=== PATIENT | male | born 1935 | race Caucasian/White ===

== ENCOUNTER 2018-04-14 14:58 | Inpatient (IN) ==
[2018-04-14] MEDS ORDERED: FUROSEMIDE 10 MG/ML VIAL IV ONE ×2 (15:30→22:35)
[2018-04-14 16:01] LABS: Hematocrit 33.9 % (42.0-52.0); Hemoglobin 10.8 gm/dL (13.5-18.0); Mean Cell Volume 89.7 fl (78-100); Mean Corpuscular Hemoglobin 28.6 pg (27-31); Mean Corpuscular Hgb Conc 31.9 g/dl (32-36); Mean Platelet Volume 8.8 fl (8-11.3); Neutrophil # 6.5 K/mm3 (1.3-6.0); Neutrophil % 74.8 % (42-75.0); Platelet Count 179 K/mm3 (150-450); Red Blood Count 3.78 M/mm3 (4.7-6.0); Red Cell Distribution Width 14.8 % (11.5-14.0); White Blood Count 8.6 K/mm3 (4.0-10.5)
[2018-04-14 16:21] LABS: ALT 139 U/L (19-67); AST 96 U/L (0-48); Albumin * 3.2 gm/dl (3.4-5.0); Alkaline Phosphatase * 83 U/L (50-170); Anion Gap 11.3 mmol/L (6.8-13.8); BNP * 2228 pg/mL (5-650); BUN/Creatinine Ratio 24.2 (9.0-21.6); Bilirubin, Total 1.2 mg/dL (0.0-1.1); Blood Urea Nitrogen 30 mg/dL (6-23); Calcium * 8.7 mg/dL (7.9-10.9); Carbon Dioxide 27.4 mmol/L (24-32.6); Chloride 107 mmol/L (97-106); Glucose * 102 mg/dL (70-110); Potassium 4.7 mmol/L (3.4-4.6); Sodium 141 mmol/L (132-142); Total Protein 6.8 gm/dL (6.2-8.2)
[2018-04-14 16:23] LABS: Troponin I Less than 0.017 ng/mL (0.00-0.10)
[2018-04-14 16:30] LABS: Urine Bilirubin Negative (NEGATIVE); Urine Blood 250 /ul (NEGATIVE); Urine Ketone Negative (NEGATIVE); Urine Nitrite Negative (NEGATIVE); Urine Protein 15 mg/dL (NEGATIVE); Urine Urobilinogen Normal (NORMAL)
[2018-04-14 16:36] LABS: Urine Appearance Slightly Cloudy (CLEAR); Urine Bacteria TRACE; Urine Color Yellow; Urine WBC TRACE /hpf (0-5)
--- NOTE | 2018-04-14 17:02 | ERNOTE ---
Dyspnea - Date Date of Service: 04/14/18 - General Presenting Symptoms: shortness of breath, difficulty of breathing Time Seen by Provider: 04/14/18 15:16 Source: patient Exam Limitations: no limitations - Immun/Allergies/Home Medications Immunizations: IMMUNIZATION HX Immunizations Up to Date No History of Influenza Vaccine No Hx Pneumococcal Vaccination No Allergies/Adverse Reactions: Allergies gluten Allergy (Mild, Verified 04/14/18 15:08) Hives Home Medications: HOME MEDICATIONS RX: Aspirin 325 mg PO HS 04/14/18 [Last Taken Unknown] RX: Metoprolol Succinate [Toprol Xl] 50 mg PO DAILY 04/14/18 [Last Taken Unknown] Furosemide [Lasix] 80 mg PO DAILY #60 tab 04/16/18 [Last Taken Unknown] RX: Lisinopril [Zestril] 20 mg PO DAILY #30 tab 04/16/18 [Last Taken Unknown] RX: Nystatin [Mycostatin Powder] 1 appl TOPICAL BID #1 btl 04/16/18 [Last Taken Unknown] RX: Spironolactone 25 mg PO DAILY #30 tab 04/16/18 [Last Taken Unknown] - History of Present Illness Narrative: patient presents to ed with c/o dyspnea and perpheral edema, onset over last week, has gained several pounds Severity: moderate Treatment FAMILY COACH: none Initiating event: Reports: none Frequency of episodes: Reports: occassional episodes Modifying Factors - (Improves): Reports: nothing Modifying Factors (Worsens): Reports: activity Associated Symptoms-Dyspnea: Reports: weakness Review of Systems - Narrative Narrative: patient present with increased sob snd increase in edema - Review of Systems Constitutional: Present: See HPI, weakness, fatigue, malaise EYE: Present: no symptoms reported ENT: Present: no symptoms reported Respiratory: Present: See HPI, shortness of breath Cardiology: Present: See HPI, edema Gastrointestinal/Abdominal: Present: no symptoms reported Genitourinary: Present: no symptoms reported Musculoskeletal: Present: no symptoms reported Skin: Present: no symptoms reported Neurological: Present: no symptoms reported Endocrine: Present: no symptoms reported Hematologic/Lymphatic: Present: no symptoms reported Psych: Present: no symptoms reported All Other Systems: All systems neg except as marked Medical History (Last Reviewed 04/14/18 @ 19:38 by Eunice Wolf RN) CVA (cerebral vascular accident) HTN (hypertension) Surgical History: Surgical History (Last Reviewed 04/14/18 @ 19:38 by Eunice Wolf RN) History of facial surgery History of open heart surgery Hx of heart bypass surgery Family History: Family History (Last Updated 04/15/18 @ 11:21 by Heidi Liu RN) Brother Father CHF (congestive heart failure) Mother Myocardial infarction Sister Heart valve replaced Sister No pertinent past medical history Brother No pertinent past medical history Social History: Preferred Language Azeri Do you have any amish or Yes: caodaism cultural preference? Smoking Status Former smoker Alcohol Use sober Drug Use none No Social History Section defined Physical Exam - Physical Exam Narrative: patient appears in mild distress General Appearance: Present: mild distress, anxious Head Exam: Present: normal inspection, no evidence of injury Eye Exam: Normal inspection: bilateral, PERRL: bilateral, EOMI: bilateral Ears, Nose, Throat: Present: normal ENT inspection, normal pharynx Neck: Present: normal inspection, nontender Respiratory: Present: rales, rhonchi, wheezing Cardiovascular/Chest: Present: regular rate, rhythm, JVD Gastrointestinal/Abdominal: Present: normal bowel sounds, nontender, nondistended, soft, no organomegaly Male Genitals Exam: Present: other - scrotal edema Back Exam: Present: normal inspection, normal range of motion, no CVA tenderness, no vertebral tenderness Extremity Exam: Present: other - perpheral edema to srotum Neurological Exam: Present: alert, oriented, normal mood/affect, no motor/sensory deficits Skin Exam: Present: normal color, warm/dry Lymphatic Exam: Present: no adenopathy Progress - Date and Time Seen: Date and Time: 04/16/18 19:53 patient improved, to be admitted - Results and Orders Patient's Lab Results:: I have reviewed the patient's lab results. - Vital Signs Patient's Vital Signs:: I have reviewed the patient's vital signs. Vital Signs: Vital Signs 04/14/18 14:59 04/14/18 15:36 04/14/18 15:55 Temperature 36.4 C 36.6 C Pulse Rate 83 95 82 Respiratory Rate 14 20 Blood Pressure 119/66 134/79 132/89 O2 Sat by Pulse Oximetry 97 97 04/14/18 16:08 04/14/18 16:38 Temperature 36.6 C 36.6 C Pulse Rate 82 87 Respiratory Rate 20 20 Blood Pressure 138/100 H 148/80 O2 Sat by Pulse Oximetry 95 95 - EKG EKG #1 EKG: NSR - X-Ray X-Ray #1 X-Ray: chest Interpretation: Interp. by me - pulmonary edema - Progress/Reassessment Chief Complaint: Dyspnea Progress:: Improved Plan - Plan Plan: to be admitted Departure Clinical Impression: Congestive heart failure (CHF) Qualifiers: Heart failure type: unspecified Heart failure chronicity: acute on chronic Qualified Code(s): I50.9 - Heart failure, unspecified - Departure Disposition: Still a patient Condition: Stable
[2018-04-14] MEDS ORDERED: POTASSIUM CHLORIDE 10 MEQ TABLET.SA PO ONE (21:00)
[2018-04-14] MEDS: ASPIRIN 325 MG TABLET.DR PO SCH (21:25)
[2018-04-14] MEDS: FUROSEMIDE 10 MG/ML VIAL IV SCH (21:27)
[2018-04-14] MEDS: NYSTATIN 15 APPL BTL TP SCH (22:49)
--- NOTE | 2018-04-15 05:45 | HP ---
Chief Complaint - Chief Complaint Date of Service: 04/15/18 Time of Service: 05:44 Chief Complaint: shortness of breath/leg swelling History of Present Illness: Crow Traylor, is a 82-year-old white male, with past medical history of hypertension, coronary artery disease status post CABG, who was admitted on 04/14/2018 because of increasing shortness of breath and increasing leg edema. The patient usually doctors at the [facility] and lately with the [facility]. For the last one week prior to admission, the patient has been having increasing shortness of breath associated with orthopnea. The patient was preferring to sleep in his rocking chair down on his bed. Yesterday he noticed that the swelling of his leg also has increased and it went up to "his personal organs" and so he went to our emergency room room. In the emergency room the patient was found to be slightly anemic, with an elevated BNP, GFR 59, LFT WNL. His EKG showed NSR and troponin was negative. His chest x-ray showed cardiomegaly with no infiltrates or edema. He did have swelling of his lower extremity involving as well as his scrotal and penile area. He was started on IV diuretics and admitted for congestive heart failure. Medical History (Last Reviewed 04/14/18 @ 19:38 by Eunice Wolf RN) CVA (cerebral vascular accident) HTN (hypertension) Surgical History: Surgical History (Last Reviewed 04/14/18 @ 19:38 by Eunice Wolf RN) History of facial surgery History of open heart surgery Hx of heart bypass surgery Family History: Family History (Last Reviewed 04/14/18 @ 19:38 by Eunice Wolf RN) Brother Father Mother Sister Heart valve replaced Sister No pertinent past medical history Brother No pertinent past medical history Social History: Patient Lives/Resources Home Utilized Preferred Language Comoran Do you have any church or Yes: synagogue cultural preference? Smoking Status Former smoker Have you smoked in the past 12 No months Do you dip or chew tobacco No Alcohol Use sober Drug Use none No Social History Section defined Review Of Systems (GEN) - Review of Systems Generalized/Overall Review: Absent: Weakness, Chills, Fever EENTM: Absent: Blurred Vision Respiratory: Present: Shortness of Breath, Orthopnea. Absent: Cough, Wheezing Cardiac: Present: Edema. Absent: Chest Pain, Palpitations Abdominal: Absent: Nausea, Vomiting Genitourinary: Absent: Urgency Musculoskeletal: Absent: Joint Pain Neurological: Absent: Headache, Weakness Misc: All systems neg except as marked Immunizations: IMMUNIZATION HX Immunizations Up to Date No History of Influenza Vaccine No Hx Pneumococcal Vaccination No Allergies/Adverse Reactions: Allergies Allergy/AdvReac Type Severity Reaction Status Date / Time gluten Allergy Mild Hives Verified 04/14/18 15:08 Home Medications: HOME MEDICATIONS Amlodipine Besylate 5 mg PO DAILY 04/14/18 [Last Taken Unknown] Aspirin 325 mg PO HS 04/14/18 [Last Taken Unknown] Metoprolol Succinate [Toprol Xl] 50 mg PO DAILY 04/14/18 [Last Taken Unknown] Exam - Exam Vital Signs: Vital Signs - Last Taken Temp 37.1 C 04/15/18 03:00 Pulse 83 04/15/18 03:00 Resp 18 04/15/18 03:00 BP 125/64 04/15/18 03:00 Pulse Ox 95 04/15/18 03:00 Constitutional: Present: Alert, Oriented x3, Cooperative, Elderly ENT Exam: Present: hearing grossly normal Eye Exam: bilateral eye: normal inspection, PERRL, EOMI Neck: Present: supple Respiratory: Present: decreased breath sounds, crackles, No wheezing Cardiovascular/Chest: Present: regular rate, rhythm, no murmur, JVD Abdomen: Present: Normal bowel sounds, soft, nontender, distended /Rectal: Present: Other - scrotal swelling Extremity: Present: no calf tenderness, lower extremity edema Diagnostic Studies: Abnormal Lab Results 04/14/18 04/14/18 04/14/18 Range/Units 15:25 15:55 15:55 RBC 3.78 L (4.7-6.0) M/mm3 Hgb 10.8 L (13.5-18.0) gm/dL Hct 33.9 L (42.0-52.0) % MCHC 31.9 L (32-36) g/dl RDW 14.8 H (11.5-14.0) % Immature Gran % (Auto) 0.70 H (0.001-0.429) % Immature Gran # (Auto) 0.06 H (0.000-0.0310) K/mm3 Lymphocytes % 9.5 L (20-51) % Monocytes % 12.1 H (0.0-9) % Neutrophils # 6.5 H (1.3-6.0) K/mm3 Lymphocytes # 0.82 L (1.5-3.5) k/mm3 pCO2 34.7 L (35.0-48.0) mmHg pO2 73.2 L (83.0-108.0) mmHg Base Excess -2.3 L (-2.0-3.0) mmol/L Potassium 4.7 H (3.4-4.6) mmol/L Chloride 107 H (97-106) mmol/L BUN 30 H (6-23) mg/dL Est GFR (Non-Af Amer) 59 L (60-130) mL/min BUN/Creatinine Ratio 24.2 H (9.0-21.6) Total Bilirubin 1.2 H (0.0-1.1) mg/dL AST 96 H (0-48) U/L ALT 139 H (19-67) U/L B-Natriuretic Peptide 2228 H (5-650) pg/mL Albumin 3.2 L (3.4-5.0) gm/dl Urine Protein (NEGATIVE) mg/dL Urine Blood (NEGATIVE) /ul Prot Sulfosalicylic Acd (0) mg/dL Urine RBC (0-5) /hpf 04/14/18 Range/Units 16:26 RBC (4.7-6.0) M/mm3 Hgb (13.5-18.0) gm/dL Hct (42.0-52.0) % MCHC (32-36) g/dl RDW (11.5-14.0) % Immature Gran % (Auto) (0.001-0.429) % Immature Gran # (Auto) (0.000-0.0310) K/mm3 Lymphocytes % (20-51) % Monocytes % (0.0-9) % Neutrophils # (1.3-6.0) K/mm3 Lymphocytes # (1.5-3.5) k/mm3 pCO2 (35.0-48.0) mmHg pO2 (83.0-108.0) mmHg Base Excess (-2.0-3.0) mmol/L Potassium (3.4-4.6) mmol/L Chloride (97-106) mmol/L BUN (6-23) mg/dL Est GFR (Non-Af Amer) (60-130) mL/min BUN/Creatinine Ratio (9.0-21.6) Total Bilirubin (0.0-1.1) mg/dL AST (0-48) U/L ALT (19-67) U/L B-Natriuretic Peptide (5-650) pg/mL Albumin (3.4-5.0) gm/dl Urine Protein 15 H (NEGATIVE) mg/dL Urine Blood 250 H (NEGATIVE) /ul Prot Sulfosalicylic Acd 2+ H (0) mg/dL Urine RBC 10-25 H (0-5) /hpf Laboratory Results WBC 8.6 K/mm3 (4.0-10.5) 04/14/18 15:55 RBC 3.78 M/mm3 (4.7-6.0) L 04/14/18 15:55 Hgb 10.8 gm/dL (13.5-18.0) L 04/14/18 15:55 Hct 33.9 % (42.0-52.0) L 04/14/18 15:55 MCV 89.7 fl (78-100) 04/14/18 15:55 MCH 28.6 pg (27-31) 04/14/18 15:55 MCHC 31.9 g/dl (32-36) L 04/14/18 15:55 RDW 14.8 % (11.5-14.0) H 04/14/18 15:55 Plt Count 179 K/mm3 (150-450) 04/14/18 15:55 MPV 8.8 fl (8-11.3) 04/14/18 15:55 Immature Gran % (Auto) 0.70 % (0.001-0.429) H 04/14/18 15:55 Immature Gran # (Auto) 0.06 K/mm3 (0.000-0.0310) H 04/14/18 15:55 Neutrophils % 74.8 % (42-75.0) 04/14/18 15:55 Lymphocytes % 9.5 % (20-51) L 04/14/18 15:55 Monocytes % 12.1 % (0.0-9) H 04/14/18 15:55 Eosinophils % 2.3 % (0.0-3.0) 04/14/18 15:55 Basophils % 0.6 % (0.0-1.0) 04/14/18 15:55 Nucleated RBC % 0.0 k/mm3 (0-1) 04/14/18 15:55 Neutrophils # 6.5 K/mm3 (1.3-6.0) H 04/14/18 15:55 Lymphocytes # 0.82 k/mm3 (1.5-3.5) L 04/14/18 15:55 Monocytes # 1.0 k/mm3 (0.0-1.0) 04/14/18 15:55 Eosinophils # 0.2 k/mm3 (0.0-0.7) 04/14/18 15:55 Absolute Basophils 0.1 k/mm3 (0.0-0.1) 04/14/18 15:55 pCO2 34.7 mmHg (35.0-48.0) L 04/14/18 15:25 pO2 73.2 mmHg (83.0-108.0) L 04/14/18 15:25 HCO3 21.7 mmol/L (21.0-28.0) 04/14/18 15:25 Total CO2 22.8 mmol/L (19.0-24.0) 04/14/18 15:25 Base Excess -2.3 mmol/L (-2.0-3.0) L 04/14/18 15:25 ABG pH 7.41 (7.35-7.45) 04/14/18 15:25 ABG O2 Sat (Measured) 95.1 % (94.0-98.0) 04/14/18 15:25 Sodium 141 mmol/L (132-142) 04/14/18 15:55 Plasma Sodium 141 mmol/L (130-142) 04/14/18 15:55 Potassium 4.7 mmol/L (3.4-4.6) H 04/14/18 15:55 Chloride 107 mmol/L (97-106) H 04/14/18 15:55 Carbon Dioxide 27.4 mmol/L (24-32.6) 04/14/18 15:55 Anion Gap 11.3 mmol/L (6.8-13.8) 04/14/18 15:55 BUN 30 mg/dL (6-23) H 04/14/18 15:55 Creatinine 1.24 mg/dL (0.4-1.4) 04/14/18 15:55 Est GFR (Non-Af Amer) 59 mL/min (60-130) L 04/14/18 15:55 BUN/Creatinine Ratio 24.2 (9.0-21.6) H 04/14/18 15:55 Random Glucose 102 mg/dL (70-110) 04/14/18 15:55 Calcium 8.7 mg/dL (7.9-10.9) 04/14/18 15:55 Calcium Adj for Albumin 9.0 mg/dL (8.4-10.2) 04/14/18 15:55 Total Bilirubin 1.2 mg/dL (0.0-1.1) H 04/14/18 15:55 AST 96 U/L (0-48) H 04/14/18 15:55 ALT 139 U/L (19-67) H 04/14/18 15:55 Alkaline Phosphatase 83 U/L (50-170) 04/14/18 15:55 Troponin I Less than 0.017 ng/mL (0.00-0.10) 04/14/18 15:55 B-Natriuretic Peptide 2228 pg/mL (5-650) H 04/14/18 15:55 Total Protein 6.8 gm/dL (6.2-8.2) 04/14/18 15:55 Albumin 3.2 gm/dl (3.4-5.0) L 04/14/18 15:55 Urine Color Yellow 04/14/18 16:26 Urine Appearance Slightly cloudy (CLEAR) 04/14/18 16:26 Urine pH 6.0 pH (5.0-7.0) 04/14/18 16:26 Ur Specific [place] 1.020 SP.GR. (1.005-1.030) 04/14/18 16:26 Urine Protein 15 mg/dL (NEGATIVE) H 04/14/18 16:26 Urine Glucose (UA) Negative mg/dL (NEGATIVE) 04/14/18 16:26 Urine Ketones Negative mg/dL (NEGATIVE) 04/14/18 16:26 Urine Blood 250 /ul (NEGATIVE) H 04/14/18 16:26 Urine Nitrate Negative (NEGATIVE) 04/14/18 16:26 Urine Bilirubin Negative mg/dl (NEGATIVE) 04/14/18 16:26 Prot Sulfosalicylic Acd 2+ mg/dL (0) H 04/14/18 16:26 Urine Urobilinogen Normal EU/dl (NORMAL) 04/14/18 16:26 Ur Leukocyte Esterase Negative /ul (NEGATIVE) 04/14/18 16:26 Urine RBC 10-25 /hpf (0-5) H 04/14/18 16:26 Urine WBC Trace /hpf (0-5) 04/14/18 16:26 Ur Epithelial Cells Trace /hpf (0-5) 04/14/18 16:26 Urine Bacteria Trace (NONE) 04/14/18 16:26 Urine Culture Comments No culture indicated 04/14/18 16:26 Assessment/Plan - Assessment/Plan (1) Congestive heart failure (CHF) Assessment: we will continue with IV diuresis. will get an Echocardiogram and will try to ge [facility] medical records from [place]. will hold his amlodipine and and start him on BERNIE I. continue with his B-Bryan. since CXR shows no pulmonary edema- this could be right sided heart failure. He denies COPD.we will see if his Echo shows pulmonary HTN. Fluid balance shows negative 1.5 L with decrease of 2 kg in his weight. Problem: Acute Qualifiers: Heart failure type: unspecified Heart failure chronicity: acute on chronic Qualified Code(s): I50.9 - Heart failure, unspecified (2) Hypertension Assessment: will continue with home medications but hold Amlodipine. Satrt BERNIE I. Problem: Chronic Qualifiers: Hypertension type: essential hypertension Qualified Code(s): I10 - Essential (primary) hypertension
[2018-04-15 06:26] LABS: Hematocrit 32.7 % (42.0-52.0); Hemoglobin 10.5 gm/dL (13.5-18.0); Mean Cell Volume 89.6 fl (78-100); Mean Corpuscular Hemoglobin 28.8 pg (27-31); Mean Corpuscular Hgb Conc 32.1 g/dl (32-36); Mean Platelet Volume 9.1 fl (8-11.3); Neutrophil # 4.9 K/mm3 (1.3-6.0); Neutrophil % 68.9 % (42-75.0); Platelet Count 193 K/mm3 (150-450); Red Blood Count 3.65 M/mm3 (4.7-6.0); Red Cell Distribution Width 14.7 % (11.5-14.0); White Blood Count 7.1 K/mm3 (4.0-10.5)
[2018-04-15 06:29] LABS: Anion Gap 10.5 mmol/L (6.8-13.8); BUN/Creatinine Ratio 20.3 (9.0-21.6); Calcium * 8.6 mg/dL (7.9-10.9); Carbon Dioxide 27.7 mmol/L (24-32.6); Estimated Creat Clear 33.9; Potassium 4.2 mmol/L (3.4-4.6)
[2018-04-15] MEDS: LISINOPRIL 20 MG TABLET PO SCH (08:58)
[2018-04-15] MEDS: FUROSEMIDE 10 MG/ML VIAL IV SCH ×2 (08:58→16:12)
[2018-04-15] MEDS: METOPROLOL SUCCINATE 50 MG TABLET.SA PO SCH (08:58)
[2018-04-15] MEDS: NYSTATIN 15 APPL BTL TP SCH ×2 (08:59→20:59)
[2018-04-15] MEDS ORDERED: ENOXAPARIN SODIUM 40 MG/0.4 ML SYRG SC SCH (11:15)
[2018-04-15] MEDS: ASPIRIN 325 MG TABLET.DR PO SCH (20:59)
[2018-04-15] MEDS ORDERED: ASPIRIN 325 MG PO SCH (21:00)
[2018-04-16 05:39] LABS: Anion Gap 11.1 mmol/L (6.8-13.8); BUN/Creatinine Ratio 22.4 (9.0-21.6); Calcium * 8.2 mg/dL (7.9-10.9); Carbon Dioxide 29.6 mmol/L (24-32.6); Estimated Creat Clear 33.6; Potassium 3.7 mmol/L (3.4-4.6)
[2018-04-16] MEDS: FUROSEMIDE 10 MG/ML VIAL IV SCH (08:19)
[2018-04-16] MEDS: LISINOPRIL 20 MG TABLET PO SCH (08:20)
[2018-04-16] MEDS: METOPROLOL SUCCINATE 50 MG TABLET.SA PO SCH (08:20)
[2018-04-16] MEDS: NYSTATIN 15 APPL BTL TP SCH (08:20)
[2018-04-16] MEDS ORDERED: POTASSIUM CHLORIDE 20 MEQ TABLET.SA PO SCH (09:00)
--- NOTE | 2018-04-16 10:03 | DS ---
(1) Congestive heart failure (CHF) Problem: Acute Qualifiers: Heart failure type: unspecified Heart failure chronicity: acute on chronic Qualified Code(s): I50.9 - Heart failure, unspecified (2) Hypertension Problem: Chronic Qualifiers: Hypertension type: essential hypertension Qualified Code(s): I10 - Essential (primary) hypertension (3) Pulmonary hypertension Problem: Suspected Description of Stay: Crow Traylor, is a 82-year-old white male, with past medical history of hypertension, coronary artery disease status post CABG, who was admitted on 04/14/2018 because of increasing shortness of breath and increasing leg edema. The patient usually doctors at the [facility] and lately with the [facility]. For the last one week prior to admission, the patient had been having increasing shortness of breath associated with orthopnea. The patient was preferring to sleep in his rocking chair down on his bed. Yesterday he noticed that the swelling of his leg also has increased and it went up to "his personal organs" and so he went to our emergency room room. In the emergency room the patient was found to be slightly anemic, with an elevated BNP, GFR 59, LFT WNL. His EKG showed NSR and troponin was negative. His chest x-ray showed cardiomegaly with no infiltrates or edema which made suspect right heart failure and /or PHTN. He did have swelling of his lower extremity involving as well as his scrotal and penile area and back. He was started on IV diuretics and admitted for congestive heart failure. His Echo showed mild LVh, EF 50-55%, possible diastolic dysfunction, Pulmonary HTN, RSVP 44, mild to moderate MR/TR, Trace UT, IVC dilated, borderline aortic root dilation, flattened septum comsistent with RV pressure/volume overload. He diuresed well and lost about 12 pounds since admission. His swelling of his penis and scrotum is slightly reduced. His anasarca and leg edema is significanlty reduced. We discontinued his amlodipine and started him on BERNIE I , diuretic, and continued with his BBlocker. Will add spironolactone . He will need cardiology consult for his congestive heart failure and probably PFT and CTS of his chest following P.E. protocol for his PHTN. Procedures Performed: none Results and Findings: Pending [employer] Results 04/14/18 15:40 Blood Blood Culture - Preliminary NO GROWTH 24 HOURS 04/14/18 15:55 Blood Blood Culture - Preliminary NO GROWTH 24 HOURS Lab Pending Results 04/14/18 15:25: pCO2 34.7 L, pO2 73.2 L, HCO3 21.7, Total CO2 22.8, Base Excess -2.3 L, ABG pH 7.41, ABG O2 Sat (Measured) 95.1 04/14/18 15:55: WBC 8.6, RBC 3.78 L, Hgb 10.8 L, Hct 33.9 L, MCV 89.7, MCH 28.6, MCHC 31.9 L, RDW 14.8 H, Plt Count 179, MPV 8.8, Immature Gran % (Auto) 0.70 H, Immature Gran # (Auto) 0.06 H, Neutrophils % 74.8, Lymphocytes % 9.5 L, Monocytes % 12.1 H, Eosinophils % 2.3, Basophils % 0.6, Nucleated RBC % 0.0, Neutrophils # 6.5 H, Lymphocytes # 0.82 L, Monocytes # 1.0, Eosinophils # 0.2, Absolute Basophils 0.1 04/14/18 15:55: Sodium 141, Plasma Sodium 141, Potassium 4.7 H, Chloride 107 H, Carbon Dioxide 27.4, Anion Gap 11.3, BUN 30 H, Creatinine 1.24, Est GFR (Non-Af Amer) 59 L, BUN/Creatinine Ratio 24.2 H, Random Glucose 102, Calcium 8.7, Calcium Adj for Albumin 9.0, Total Bilirubin 1.2 H, AST 96 H, ALT 139 H, Alkaline Phosphatase 83, Troponin I Less than 0.017, B-Natriuretic Peptide 2228 H, Total Protein 6.8, Albumin 3.2 L 04/14/18 16:26: Urine Color Yellow, Urine Appearance Slightly cloudy, Urine pH 6.0, Ur Specific [place] 1.020, Urine Protein 15 H, Urine Glucose (UA) Negative, Urine Ketones Negative, Urine Blood 250 H, Urine Nitrate Negative, Urine Bilirubin Negative, Prot Sulfosalicylic Acd 2+ H, Urine Urobilinogen Normal, Ur Leukocyte Esterase Negative, Urine RBC 10-25 H, Urine WBC Trace, Ur Epithelial Cells Trace, Urine Bacteria Trace, Urine Culture Comments No culture indicated 04/15/18 05:10: B-Natriuretic Peptide 2200 H 04/15/18 05:10: WBC 7.1, RBC 3.65 L, Hgb 10.5 L, Hct 32.7 L, MCV 89.6, MCH 28.8, MCHC 32.1, RDW 14.7 H, Plt Count 193, MPV 9.1, Immature Gran % (Auto) 0.60 H, Immature Gran # (Auto) 0.04 H, Neutrophils % 68.9, Lymphocytes % 14.1 L, Monocytes % 12.4 H, Eosinophils % 3.4 H, Basophils % 0.6, Nucleated RBC % 0.0, Neutrophils # 4.9, Lymphocytes # 1.00 L, Monocytes # 0.9, Eosinophils # 0.2, Absolute Basophils 0.0 04/15/18 05:10: Sodium 139, Plasma Sodium 139, Potassium 4.2, Chloride 105, Carbon Dioxide 27.7, Anion Gap 10.5, BUN 27 H, Creatinine 1.33, Est GFR (Non-Af Amer) 55 L, BUN/Creatinine Ratio 20.3, Random Glucose 102, Calcium 8.6 04/16/18 05:18: Sodium 141, Plasma Sodium 141, Potassium 3.7, Chloride 104, Carbon Dioxide 29.6, Anion Gap 11.1, BUN 30 H, Creatinine 1.34, Est GFR (Non-Af Amer) 54 L, BUN/Creatinine Ratio 22.4 H, Random Glucose 98, Calcium 8.2 Discharge Location: Home Disposition: Home self-care Condition: Stable Discharge Activity: Activity as tolerated Discharge Diet: Low salt Problem Oriented Discharge Instructions to Patient/Family: Pulmonary Hypertension Additional Patient Instructions (free text): Please fax dc orders, dc summary and echo report [phone]. Attn: Tiago. Keep appointment with Cardiology at the [facility] at 10am on May 06. Make follow up with PCP at the [place] [facility] in [place]. Prescriptions (Any new or edited meds): Furosemide [Lasix] 80 mg PO DAILY #60 tab Lisinopril [Zestril] 20 mg PO DAILY #30 tab Nystatin [Mycostatin Powder] 1 appl TOPICAL BID #1 btl Spironolactone 25 mg PO DAILY #30 tab Complete Home Medications List: Complete Home Medication List: Aspirin 325 mg PO HS 02/06/19 Metoprolol Succinate [Toprol Xl] 50 mg PO DAILY 04/14/18 Furosemide [Lasix] 80 mg PO DAILY #60 tab 04/16/18 Lisinopril [Zestril] 20 mg PO DAILY #30 tab 04/16/18 Nystatin [Mycostatin Powder] 1 appl TOPICAL BID #1 btl 04/16/18 Spironolactone 25 mg PO DAILY #30 tab 04/16/18 Amb Orders for Discharge: Basic Metabolic Panel Time Frame: 04/22/18, Location: Laboratory BNP * Time Frame: 04/22/18, Location: Laboratory
[2018-04-16 11:34] VITALS: BP 102/54
--- NOTE | 2018-04-19 07:36 | ECHO ---
This report is available in the EMR
== END 2018-04-16 11:55 | disposition home or self-care (01) | DRG 293 ==
LOC: ER 14:58 → MS 14:58
PROVIDERS: ADMIT Internal Medicine; ATTEND Internal Medicine
DX: I50.9 Heart failure, unspecified; I34.0 Nonrheumatic mitral (valve) insufficiency; Z91.018 Allergy to other foods; I25.10 Atherosclerotic heart disease of native coronary artery without angina pectoris; I27.20 Pulmonary hypertension, unspecified; I11.0 Hypertensive heart disease with heart failure; D64.9 Anemia, unspecified; Z87.891 Personal history of nicotine dependence; Z82.49 Family history of ischemic heart disease and other diseases of the circulatory system; Z95.1 Presence of aortocoronary bypass graft; I36.1 Nonrheumatic tricuspid (valve) insufficiency; Z79.82 Long term (current) use of aspirin; Z86.73 Personal history of transient ischemic attack (TIA), and cerebral infarction without residual deficits
CPT/HCPCS: 36415; 36600; 71020; 71046; 80048; 80053; 81001; 82803; 83519; 83880; 84484; 85025; 87040; 93005; 93306; 94760; 96374; 99285